=== PATIENT | male | born 1985 | race Two or more races ===

== ENCOUNTER 2021-03-09 04:28 | Emergency (ER) | payer OTHER ==
[~2021-03-09] VITALS: Ht 167.6 cm; Wt 77.0 kg
[2021-03-09 04:57] VITALS: BP 147/99
== END 2021-03-09 05:26 ==
LOC: ER 04:28
DX: Z00.00 Encounter for general adult medical examination without abnormal findings (principal); I10 Essential (primary) hypertension; E78.00 Pure hypercholesterolemia, unspecified
CPT/HCPCS: 99283